=== PATIENT | male | born 1975 | race Two or more races ===

== ENCOUNTER 2023-01-26 18:07 | Emergency (ER) | payer MEDICAID, OTHER ==
[~2023-01-26] VITALS: Ht 185.4 cm; Wt 79.3 kg
[2023-01-26 19:19] VITALS: BP 116/75; PULSE 91; RESP 20; TEMP 97.3; O2SAT 96
[2023-01-26] MEDS ORDERED: IBUP-1455 PO (19:46)
[2023-01-26] MEDS ORDERED: HYDR-4902 PO (19:46)
[2023-01-26] MEDS ORDERED: ZOFR4T PO (19:46)
== END 2023-01-26 20:25 | disposition home or self-care (01) ==
LOC: ER 18:07
DX: S22.32XA Fracture of one rib, left side, initial encounter for closed fracture (principal); S50.812A Abrasion of left forearm, initial encounter; Z79.899 Other long term (current) drug therapy; X58.XXXA Exposure to other specified factors, initial encounter; Y93.9 Activity, unspecified; Y92.89 Other specified places as the place of occurrence of the external cause; Y99.8 Other external cause status
CPT/HCPCS: 71101; 73090